=== PATIENT | male | born 1955 | race Hispanic/Latino ===

== ENCOUNTER → 2017-08-13 | Outpatient (CLI) | payer MEDICARE ==
[~2017-08-13] MED LIST: IOPAMIDOL 370 MG/ML 200 ML INFUS..BTL INJ ONE; METOPROLOL SUCC50 MG PO; NORCO 5-325 TA1 EACH; OMEPRAZOLE40 MG PO; PANTOPRAZOLE SO40 MG PO; SODIUM CHLORIDE 0.9% 50ML 50 ML ONE; WARFARIN SODIUM10 MG PO; WARFARIN SODIUM5 MG PO
[2017-08-13 14:35] LABS: BLOOD UREA NITROGEN 24 mg/dL (7-26); BUN/CREATININE RATIO 20 (6-25); CREATININE, SERUM 1.21 mg/dL (0.72-1.25); EST GLOMERULAR FILTRATION RATE > 60 ML/MIN (60-)
--- NOTE | 2017-08-13 15:29 | Diagnostic Imaging Report ---
EXAM: CT Chest WITH contrast (PE Protocol) INDICATION: \[id number] \S\[id number] \S\[id number] COMPARISON: None TECHNIQUE: Chest was scanned utilizing a multidetector helical scanner from the lung apex through the level of the diaphragm after administration of IV contrast. Thin section reconstructions were obtained with special concentration on the pulmonary arteries. Coronal and sagittal reformations were obtained. Pulmonary embolism protocol was performed. IV CONTRAST: 100 mL of Isovue-370 COMPLICATIONS: None RADIATION DOSE: Total DLP: 496.03 mGy*cm Estimated effective dose: (DLP x 0.014 x size factor) mSv CTDIvol has been reviewed. It is below the limits set by the Radiation Protocol Committee (RPC). FINDINGS: LINES/ TUBES: Left chest wall Mediport in place with tip terminating in superior SVC LUNGS AND AIRWAYS: Elevation of the lungs are limited priors for same motion. However the right hemidiaphragm. Right lung volume loss Mild to moderate right lower lobe atelectasis No filling defect is identified within the pulmonary arteries to the segmental level. Airways are normal. PLEURA: The pleural spaces are clear. HEART AND MEDIASTINUM: The thyroid gland is normal. No axillary lymphadenopathy. Scattered subcentimeter mediastinal lymph nodes. There is a 3.3 x 3.4 x 3.9 cm right superior anterior mediastinal mass (series 2, image 31). There is a catheter terminating within this mass which extends inferiorly along the right anterior chest wall, with tip outside the [id number]. There is soft tissue thickening surrounding this catheter. The heart is normal in size.. There is no pericardial effusion. . Main pulmonary artery measures 2.4 cm in diameter and the ascending aorta measures 3.3 cm. UPPER ABDOMEN: Cholecystectomy. Splenomegaly. Thickening of the adrenal glands, probably from hyperplasia. BONES: The visualized bony thorax is within normal limits. SOFT TISSUES: Mild bilateral gynecomastia. IMPRESSION: 1. No pulmonary emboli. 2. Elevated right hemidiaphragm with right lung volume loss and moderate atelectasis in right lower lobe. 3. 3.9 cm anterior mediastinal mass. There is a catheter terminating within this mass with tip extending along the right anterior chest wall. There is soft tissue thickening along the course of the catheter. Please correlate clinically. Physician delinquent tax collection assistant Bertha was notified at 3:20 PM, on 08/13/2017. Signed by: Dr. Nasim Swain MD on 08/13/2017 3:26 PM
== END ==
LOC: CT 12:41
PROVIDERS: ATTEND Family Medicine
DX: R06.02 Shortness of breath (principal)
CPT/HCPCS: 36415; 71260; 82565; 84520; Q9967